=== PATIENT | male | born 1945 | race Asian ===

== ENCOUNTER 2020-01-15 17:49 | Emergency (ER) | payer MEDICARE, OTHER ==
[~2020-01-15] VITALS: Ht 182.9 cm; Wt 68.0 kg
[2020-01-15 18:02] VITALS: BP 139/69
[2020-01-15] MEDS ORDERED: TETANUS-DIPTH-ACEL PERTUSSIS 0.5ML SYR Tdap IM ONE (18:45)
== END 2020-01-15 20:43 | disposition home or self-care (01) ==
LOC: ER 17:49
DX: S01.01XA Laceration without foreign body of scalp, initial encounter (principal); W22.8XXA Striking against or struck by other objects, initial encounter; Y93.89 Activity, other specified; Y92.89 Other specified places as the place of occurrence of the external cause; Y99.8 Other external cause status
CPT/HCPCS: 12002; 70450; 90471; 90715

== ENCOUNTER → 2020-01-24 | Emergency (ER) | payer OTHER ==
[~2020-01-24] VITALS: Ht 182.9 cm; Wt 68.0 kg
[2020-01-24 11:45] VITALS: BP 112/70
== END | disposition home or self-care (01) ==
LOC: ER 11:26
DX: S01.01XD Laceration without foreign body of scalp, subsequent encounter (principal); X58.XXXD Exposure to other specified factors, subsequent encounter